=== PATIENT | male | born 1975 | race Caucasian/White ===

== ENCOUNTER 2018-08-31 09:04 | Emergency (ER) | payer MEDICAID, OTHER, SELFPAY ==
[~2018-08-31] VITALS: Ht 170.2 cm; Wt 91.5 kg
--- NOTE | 2018-08-31 09:18 | NUR ---
Pt ambulated to room with steady gait. Pt reports vomiting for 4 days with diarrhea. Pt is alert, oriented, with NAD. Pt is connected to the monitor. Call light within reach. Friend at bedside.
[2018-08-31 09:22] VITALS: BP 123/75
--- NOTE | 2018-08-31 09:57 | NUR ---
Pt is not in room, gown is on bed, BP cuff, and O2 Sat monitor on the floor. Addendum: 08/31/18 at 1001 by BHAVIN provider informed.
[2018-08-31] MEDS ORDERED: MAALOX/HYOSCYAMINE/LIDOCAINE 45 ML BTL PO ONE (10:00)
[2018-08-31] MEDS ORDERED: ONDANSETRON ODT 4 MG PO ONE (10:00)
[2018-08-31] MEDS ORDERED: FAMOTIDINE 20 MG TABLET PO ONE (10:00)
== END 2018-08-31 10:06 | disposition left against medical advice (07) ==
LOC: ED 09:44
DX: R11.2 Nausea with vomiting, unspecified (principal); Z53.21 Procedure and treatment not carried out due to patient leaving prior to being seen by health care provider